=== PATIENT | male | born 1955 | race Caucasian/White ===

== ENCOUNTER → 2021-03-23 | Day surgery (SDC) | payer OTHER ==
[~2021-03-23] VITALS: Ht 170.2 cm; Wt 86.2 kg
[~2021-03-23] MED LIST: ASPIRIN EC81 MG PO; FLOMAX0.4 MG PO; LIPITOR20 MG PO; LISINOPRIL30 MG PO; NITROSTAT0.4 MG SL; OMEPRAZOLE 20MG20 MG PO; TOPROL XL50 MG PO
[2021-03-23 08:39] LABS: HCT 50.2 % (42.0-52.0); HGB 17.2 g/dl (13.2-18.0); MCH 31.1 pg (25.0-31.0); MCHC 34.3 g/dL (32.0-36.0); MCV 90.8 fL (78.0-100.0); MPV 11.6 fL (6.0-9.5); RBC 5.53 M/uL (4.70-6.00); RDW 12.2 % (11.5-14.0); WBC 11.1 K/uL (4.0-10.5)
[2021-03-23 09:05] LABS: ALBUMIN 4.6 g/dL (3.4-5.0); CREATININE 1.06 mg/dL (0.67-1.17); GLOBULIN (CALCULATION) 3.6 g/dL; POTASSIUM 4.7 mmol/L (3.5-5.1); TOTAL PROTEIN 8.2 g/dL (6.4-8.2)
== END | disposition home or self-care (01) ==
LOC: FAS 07:59
PROVIDERS: Surgery
DX: Z12.11 Encounter for screening for malignant neoplasm of colon (principal); I10 Essential (primary) hypertension; K52.9 Noninfective gastroenteritis and colitis, unspecified; Z87.891 Personal history of nicotine dependence; Z86.010 Personal history of colon polyps; Z79.82 Long term (current) use of aspirin; Z79.899 Other long term (current) drug therapy
CPT/HCPCS: 36415; 80053; J2250; J2370; J2704; J7120